=== PATIENT | female | born 1980 | race Caucasian/White ===

== ENCOUNTER 2016-10-21 10:57 | Emergency (ER) | payer MEDICAID | END 2016-10-21 12:36 | disposition home or self-care (01) | LOC: D.ER 10:57 | DX: S62.112A Displaced fracture of triquetrum [cuneiform] bone, left wrist, initial encounter for closed fracture (principal); W05.1XXA Fall from non-moving nonmotorized scooter, initial encounter; Y93.89 Activity, other specified; Y92.89 Other specified places as the place of occurrence of the external cause; F17.200 Nicotine dependence, unspecified, uncomplicated ==

== ENCOUNTER 2017-02-03 22:06 | Emergency (ER) | payer MEDICAID ==
[2017-02-03 22:26] LABS: UDS - AMPHET NEGATIVE QUAL (NEGATIVE); UDS - BARB NEGATIVE QUAL (NEGATIVE); UDS - BENZO NEGATIVE QUAL (NEGATIVE); UDS - COCAINE NEGATIVE QUAL (NEGATIVE); UDS - METH NEGATIVE QUAL (NEGATIVE); UDS - OPIATE NEGATIVE QUAL (NEGATIVE); UDS - PCP NEGATIVE QUAL (NEGATIVE); UDS - THC POSITIVE QUAL (NEGATIVE)
== END 2017-02-03 23:27 | disposition home or self-care (01) ==
LOC: D.ER 22:06
PROVIDERS: Emergency Medicine
DX: R07.89 Other chest pain (principal); F41.9 Anxiety disorder, unspecified; F17.200 Nicotine dependence, unspecified, uncomplicated; R00.0 Tachycardia, unspecified

== ENCOUNTER 2017-04-07 09:01 | Emergency (ER) | payer MEDICAID | END 2017-04-07 10:12 | disposition home or self-care (01) | LOC: D.ER 09:01 | DX: S43.401A Unspecified sprain of right shoulder joint, initial encounter (principal); W19.XXXA Unspecified fall, initial encounter; Y93.89 Activity, other specified; Y92.019 Unspecified place in single-family (private) house as the place of occurrence of the external cause; M75.101 Unspecified rotator cuff tear or rupture of right shoulder, not specified as traumatic; F17.200 Nicotine dependence, unspecified, uncomplicated ==

== ENCOUNTER 2019-02-26 11:24 | Inpatient (IN) | payer MEDICAID ==
[~2019-02-26] VITALS: Ht 149.9 cm; Wt 59.1 kg
--- NOTE | ~2019-02-26 | EC ---
PATIENT:CHRIS HENRIQUEZ DATE OF SERVICE: 02/27/19 SEX: F MEDICAL RECORD: [id number] DATE OF : 84 LOCATION:D.M3 D.120 AGE OF PATIENT: 38 ADMISSION DATE: 02/27/19 REFERRING PHYSICIAN: INTERPRETING PHYSICIAN: MURIEL TO MD ECHOCARDIOGRAM REPORT ECHO CHARGES 4 ECHO COMPLETE Date: 02/27/19 CLINICAL DIAGNOSIS: FEVER ECHOCARDIOGRAPHIC MEASUREMENTS (adult normal given) AC root (d.<3.7cm) 3.0 cm LV Septum d (<1.2 cm> 1.0 cm Valve Excursion 1.1 cm LV Septum (systole) 1.1 cm Left Atria (s.<4.0cm> 3.3 cm LVPW d(<1.2cm) 1.4 cm RV (d.<2.3cm) 3.0 cm LVPW (sytole) 1.6 cm LV diastole(<5.6CM) 3.9 cm MV E-F(>70mm/sec) cm LV systole 2.7 cm LVOT Diameter 2.0 cm MV exc.(>10mm) 1.5 cm Est.ejection fraction (50-75%) % DOPPLER: LVIT cm/sec A 74.0 cm/sec E 103 cm/sec LA cm/sec RVSP 17 mmHg LVOT 147 cm/sec AOP1/2T m/s Asc. Ao 155 cm/sec RVOT 85 cm/sec RA cm/sec PA 134 cm/sec AV Gradient Peak 9.63 mmHg AV Mean 5.24 mmHg AV Area 3.5 cm MV Gradient Peak 5.05 mmHg MV Mean 2.15 mmHg MV Area cm COMMENTS: Casing Blower: Kamilah CABALLERO Change Manager: 1 Dr. To TAPE# PACS Pericardial Effusion N DATE OF SERVICE: 02/28/2019 FINDINGS: 1. Left ventricular chamber size is within normal limits. Left ventricular systolic function is normal. Overall ejection fraction is estimated at 60%. 2. Left atrium, right atrium, and right ventricular chamber sizes are within normal limit. 3. Valvular structures have normal structure and motion. 4. Doppler interrogation reveals no significant valvular insufficiency or stenosis. Pulmonary systolic pressure is estimated at 17 mmHg. ECHOCARDIOGRAM REPORT [id number] CHRIS HENRIQUEZ 5. No evidence of pericardial effusion or left ventricular thrombus. TRANSINT:[id number] Voice Confirmation ID: [id number] DOCUMENT ID: [id number] MURIEL TO MD CC: [id number] DICTATION DATE: 02/28/19 1252 TAKER OFF: 02/28/19 1702 DIS IN 02/28/19 [place] [id number] [place] [id number]
--- NOTE | 2019-02-26 11:32 | NUR ---
PT STATES SHE TOOK 1 G OF TYLENOL SHIPPING LEAD PERSON FOR TEMP OF 104.0
[2019-02-26 11:52] LABS: BASOPHILS 0.1 % (0-2); EOSINOPHILS 0.1 % (0-7); HEMATOCRIT 39.8 % (36.0-48.0); HEMOGLOBIN 14.4 g/dL (12-16); IMMATURE GRANULOCYTES 0.3 % (0-5); LYMPHOCYTES 7.3 % (15-50); MCHC 36.2 g/dL (31.0-37.0); MCV 94.1 fL (80.0-100.0); MEAN PLATELET VOLUME 9.6 fL (7.4-10.4); MONOCYTES 13.8 % (2-11); NEUTROPHILS 78.4 % (40-80); RBC 4.23 10x6/uL (4.00-5.40); RDW 12.9 % (11.5-14.5); WBC 17.3 10x3/uL (4.8-10.8)
[2019-02-26 11:53] LABS: PLATELET COUNT 203 10x3/uL (130-400)
[2019-02-26 11:56] LABS: APPEARANCE HAZY (CLEAR); BACTERIA MODERATE /hpf (NONE SEEN); BILIRUBIN NEGATIVE (NEGATIVE); COLOR DK YELLOW (YELLOW); EPITHELIAL CELLS 0-5 /hpf (0-5); GLUCOSE NEGATIVE (NEGATIVE); KETONE NEGATIVE (NEGATIVE); MUCUS <1+ /lpf (NONE SEEN); NITRITE NEGATIVE (NEGATIVE); PROTEIN 1+ mg/dL (NEGATIVE); SPECIFIC GRAVITY 1.015 (1.005-1.020)
[2019-02-26 12:06] LABS: ALBUMIN 3.1 g/dL (3.4-5.0); ALKALINE PHOSPHATASE 105 U/L (46-116); ALT (SGPT) 45 U/L (10-68); BILIRUBIN - TOTAL 1.34 mg/dL (0.2-1.3); CALC OSMOLALITY 268 mosm/kg (275-300); CARBON DIOXIDE 22.4 mmol/L (21.0-32.0); CHLORIDE - SERUM 102 mmol/L (98-107); CREATININE - SERUM 0.8 mg/dL (0.6-1.3); GLUCOSE 109 mg/dL (74-106); SODIUM 135 mmol/L (136-145); UREA NITROGEN 8 mg/dL (7-18); eGFR NON AFRICAN AMERICAN 86 mL/min (90-120)
[2019-02-26 12:07] VITALS: BP 105/67
[2019-02-26 12:07] LABS: AMYLASE - SERUM 17 U/L (25-115); LIPASE 121 U/L (73-393)
[2019-02-26 12:08] LABS: TROPONIN-I < 0.017 ng/mL (0.000-0.060)
[2019-02-26 16:43] VITALS: BP 118/71; Ht 149.9 cm; Wt 59.1 kg
--- NOTE | 2019-02-26 17:26 | NUR ---
GURJIT BARNES HERE TO SEE PT. ALERTED GURJIT THAT NO FLUID ORDERS WERE ON PT SEP. NEW ORDER RECIEVED TO START NS AT 125ML/HR
--- NOTE | 2019-02-26 18:01 | NUR ---
PER JOSE SUPERVISOR LOOPING, PT IS RUNNING [address]
[2019-02-26 19:02] LABS: HCG SERUM NEGATIVE (NEGATIVE)
[2019-02-26 19:04] LABS: INR 1.26 (0.85-1.17); PROTIME 15.2 SECONDS (11.6-15.0)
--- NOTE | 2019-02-26 19:38 | NUR ---
RECIEVED UP IN BED WITH EYES OPEN AND TV ON. ALERT AND ORIENTED X4. UP AD KASSIE. IV TO LEFT AC WITH NS AT 125CC/HR. TELEMETRY IN PLACE. DENIES ANY NEEDS AT THIS TIME.
[2019-02-26 20:00] VITALS: BP 105/58
[2019-02-27] VITALS: BP 115/66
[2019-02-27 04:46] VITALS: BP 117/62
[2019-02-27 06:42] LABS: BASOPHILS 0.1 % (0-2); EOSINOPHILS 0.1 % (0-7); HEMATOCRIT 35.2 % (36.0-48.0); HEMOGLOBIN 12.4 g/dL (12-16); IMMATURE GRANULOCYTES 0.4 % (0-5); LYMPHOCYTES 9.3 % (15-50); MCH 33.3 pg (26.0-34.0); MCHC 35.2 g/dL (31.0-37.0); MCV 94.6 fL (80.0-100.0); MEAN PLATELET VOLUME 9.6 fL (7.4-10.4); MONOCYTES 11.2 % (2-11); NEUTROPHILS 78.9 % (40-80); PLATELET COUNT 183 10x3/uL (130-400); RBC 3.72 10x6/uL (4.00-5.40); WBC 16.4 10x3/uL (4.8-10.8)
[2019-02-27 07:27] LABS: ALBUMIN 2.6 g/dL (3.4-5.0); ALKALINE PHOSPHATASE 136 U/L (46-116); BILIRUBIN - TOTAL 1.56 mg/dL (0.2-1.3); CALCIUM 7.7 mg/dL (8.5-10.1); CARBON DIOXIDE 19.3 mmol/L (21.0-32.0); CHLORIDE - SERUM 106 mmol/L (98-107); CREATININE - SERUM 0.7 mg/dL (0.6-1.3); GLUCOSE 113 mg/dL (74-106); MAGNESIUM - SERUM 1.6 mg/dL (1.8-2.4); POTASSIUM - SERUM 3.3 mmol/L (3.5-5.1); PROTEIN - SERUM 6.1 g/dL (6.4-8.2); SODIUM 137 mmol/L (136-145); eGFR NON AFRICAN AMERICAN > 90 mL/min (90-120)
[2019-02-27 07:42] LABS: ALT (SGPT) 62 U/L (10-68); CALC OSMOLALITY 271 mosm/kg (275-300); UREA NITROGEN 4 mg/dL (7-18)
[2019-02-27 09:56] VITALS: BP 114/68
--- NOTE | 2019-02-27 10:01 | NUR ---
THE PATIENT WAS LYING IN BED AND WATCHING TELEVISION WHEN STAFF ENTERED HER ROOM. BED IS IN THE LOW POSITION WITH SIDERAILS X2 AND CALL LIGHT WITHIN REACH. THE PATIENT WAS EDUCATED ON THE USE OF A CALL LIGHT AND DMONSTRATED UNDERSTANDING VIA TEACHBACK METHOD. THE PATIENT STATES SEVERE PAIN. PAIN MEDICATION ADMINISTERED, THE PATIENT HAS NO OTHER QUESTIONS OR CONCERNS AT THIS TIME.
--- NOTE | 2019-02-27 19:12 | NUR ---
PATIENT RESTING IN BED AND REQUESTED SOMETHING TO HELP HER SLEEP TONIGHT AND REQUESTED PAIN MEDS WHEN DUE. PATIENT DENIES OTHER NEEDS AT THIS TIME. BED IN LOWEST POSITION AND CALL LIGHT WITHIN REACH. ENCOURAGED THE PATIENT TO CALL IF SHE HAS NEEDS. WILL CONTINUE TO MONITOR.
--- NOTE | 2019-02-27 19:19 | NUR ---
SPOKE WITH DR. HUANG IN REGARDS TO SLEEP MEDICATION FOR THE PATIENT. DR. HUANG ORDERED 15 MG RESTORIL QHSP.
[2019-02-27 19:54] VITALS: BP 125/73
[2019-02-28 00:21] VITALS: BP 119/71
[2019-02-28 04:35] VITALS: BP 123/49
[2019-02-28 06:11] LABS: BASOPHILS 0.1 % (0-2); EOSINOPHILS 1.6 % (0-7); HEMATOCRIT 35.3 % (36.0-48.0); HEMOGLOBIN 12.4 g/dL (12-16); IMMATURE GRANULOCYTES 0.3 % (0-5); LYMPHOCYTES 12.5 % (15-50); MCH 33.2 pg (26.0-34.0); MCHC 35.1 g/dL (31.0-37.0); MCV 94.6 fL (80.0-100.0); MONOCYTES 11.5 % (2-11); PLATELET COUNT 207 10x3/uL (130-400); RBC 3.73 10x6/uL (4.00-5.40); RDW 13.1 % (11.5-14.5)
[2019-02-28 06:29] LABS: ALBUMIN 2.6 g/dL (3.4-5.0); ALKALINE PHOSPHATASE 140 U/L (46-116); ALT (SGPT) 63 U/L (10-68); BILIRUBIN - TOTAL 0.75 mg/dL (0.2-1.3); CALC OSMOLALITY 271 mosm/kg (275-300); CALCIUM 8.2 mg/dL (8.5-10.1); CARBON DIOXIDE 23.7 mmol/L (21.0-32.0); CHLORIDE - SERUM 103 mmol/L (98-107); GLUCOSE 114 mg/dL (74-106); MAGNESIUM - SERUM 1.6 mg/dL (1.8-2.4); PROTEIN - SERUM 6.6 g/dL (6.4-8.2); SODIUM 137 mmol/L (136-145); UREA NITROGEN 4 mg/dL (7-18)
[2019-02-28 06:44] LABS: CREATININE - SERUM 0.5 mg/dL (0.6-1.3); POTASSIUM - SERUM 3.3 mmol/L (3.5-5.1); eGFR NON AFRICAN AMERICAN > 90 mL/min (90-120)
[2019-02-28 07:37] VITALS: BP 126/73
[2019-02-28] MEDS ORDERED: LEVAQUIN750 MG PO (11:03)
== END 2019-02-28 14:06 | disposition home or self-care (01) | DRG 872 ==
LOC: D.ER 11:24 → OBSVTIME 15:00 → D.M3 15:00
PROVIDERS: Family Medicine; ADMIT Internal Medicine Nephrology; ATTEND Internal Medicine Nephrology
DX: A41.9 Sepsis, unspecified organism (principal); N12 Tubulo-interstitial nephritis, not specified as acute or chronic; N17.9 Acute kidney failure, unspecified; D68.9 Coagulation defect, unspecified; F17.213 Nicotine dependence, cigarettes, with withdrawal; E87.6 Hypokalemia; E83.42 Hypomagnesemia; F12.90 Cannabis use, unspecified, uncomplicated